=== PATIENT | female | born 1985 | race Hispanic/Latino ===

== ENCOUNTER 2017-07-05 01:30 | Emergency (ER) | payer MEDICAID, OTHER ==
--- NOTE | 2017-07-05 01:49 | Emergency Department Report ---
History of Present Illness - General Chief Complaint: Overdose Stated Complaint: MEDICAL CONDITION Time Seen by Provider: 07/05/17 01:39 Source: patient, police, EMS Mode of arrival: Stretcher Limitations: Altered Mental Status - History of Present Illness Initial Comments: [place] On arrival she was agitated and confused and having pseudoseizures according to EMS. She is cussing and confused. She does answer questions but is very vulgar with staff. Complaint: other (unknown) -: Sudden - Related Data Allergies Allergy/AdvReac Type Severity Reaction Status Date / Time Unable to Assess Allergy Unverified 07/05/17 01:37 ED Review of Systems ROS: Stated complaint: MEDICAL CONDITION Other details as noted in HPI Comment: Unobtainable due to pts medical conditions ED Past Medical Hx - Past Medical History Previous Medical History?: Yes Hx Heart Attack/AMI: Yes Hx Seizures: Yes Hx Asthma: Yes - Surgical History Past Surgical History?: No - Social History Smoking Status: Current Every Day Smoker Substance Use Type: Alcohol, Heroin, Methamphetamines ED Physical Exam - General Limitations: Altered Mental Status General appearance: appears intoxicated, other (disheveled) - Head Head exam: Present: atraumatic, normocephalic - Eye Eye exam: Present: normal appearance - Neck Neck exam: Absent: lymphadenopathy, thyromegaly - Respiratory Respiratory exam: Present: normal lung sounds bilaterally, respiratory distress - Cardiovascular Cardiovascular Exam: Present: normal rhythm, tachycardia - GI/Abdominal GI/Abdominal exam: Absent: soft, distended - Neurological Exam Neurological exam: Present: alert - Psychiatric Psychiatric exam: Present: agitated - Skin Skin exam: Present: warm, dry, intact ED Medical Decision Making - Medical Decision Making Patient extremely agitated. He was given Haldol Versed and Benadryl by EMS. Plan to give her a dose of Geodon if she remains aggressive with staff here in the emergency department. Plan to check labs and will observe in the emergency department. Likely 2012 to hold the patient for safety. Portions of this chart were dictated with dictation software. There may be dictation errors contained within this note. Critical care attestation.: If time is entered above; I have spent that time in minutes in the direct care of this critically ill patient, excluding procedure time. ED Disposition Condition: Stable
[2017-07-05 01:51] LABS: Urine Drugs of Abuse Note Disclamer
[2017-07-05 02:15] LABS: Bilirubin,Urine NEG (Negative); Blood,Urine NEG (Negative); Ketones,Urine NEG (Negative); Leukocyte Esterase,Urine NEG (Negative); Nitrite,Urine NEG (Negative); Protein,Urine <15 mg/dL mg/dL (Negative); Urobilinogen,Urine < 2.0 mg/dL (<2.0)
[2017-07-05 02:26] LABS: RBC,Urine < 1.0 /HPF (0.0-6.0); WBC,Urine < 1.0 /HPF (0.0-6.0)
[2017-07-05 02:30] LABS: Basophils % (Auto) 0.8 % (0.0-1.8); Eosinophils % (Auto) 2.1 % (0.0-4.3); Hematocrit 38.8 % (30.3-42.9); Hemoglobin 13.5 gm/dl (10.1-14.3); Mean Corpuscular HGB Conc 35 % (30-34); Mean Corpuscular Hemoglobin 34 pg (28-32); Mean Corpuscular Volume 98 fl (79-97); Platelet Count 70 K/mm3 (140-440); Red Blood Count 3.94 M/mm3 (3.65-5.03); Red Cell Distribution Width 13.1 % (13.2-15.2); White Blood Count 8.7 K/mm3 (4.5-11.0)
[2017-07-05 02:31] LABS: INR 0.86 (0.87-1.13)
[2017-07-05 02:33] LABS: Alanine Aminotransferase 17 units/L (7-56); Albumin 3.8 g/dL (3.9-5); Albumin/Globulin Ratio 1.5 %; Alkaline Phosphatase 93 units/L (35-129); Anion Gap 24 mmol/L; BUN/Creatinine Ratio 11; Bilirubin,Total < 0.20 mg/dL (0.1-1.2); Blood Urea Nitrogen 8 mg/dL (7-17); Calcium 8.6 mg/dL (8.4-10.2); Carbon Dioxide 17 mmol/L (22-30); Chloride 106.2 mmol/L (98-107); Creatine Kinase 330 units/L (30-135); Glucose 93 mg/dL (65-100); Potassium 3.7 mmol/L (3.6-5.0); Sodium 143 mmol/L (137-145); Total Protein 6.4 g/dL (6.3-8.2)
[2017-07-05] MEDS ORDERED: NACL 0.9% 1000 ML 1,000 ML IV ONE (03:01)
[2017-07-05 12:06] VITALS: BP 104/65
--- NOTE | 2017-07-05 12:06 | Event Note ---
Date: 07/05/17 Patient is alert and oriented 4 patient able to tolerate by mouth challenge and able to ambulate. I will send patient with police custody.
== END 2017-07-05 12:06 | disposition home or self-care (01) ==
LOC: ED 01:30 → EEVIPCON 01:30 → ED 12:06
DX: R45.1 Restlessness and agitation (principal); R41.0 Disorientation, unspecified; F17.210 Nicotine dependence, cigarettes, uncomplicated; F15.10 Other stimulant abuse, uncomplicated; F11.10 Opioid abuse, uncomplicated; I25.2 Old myocardial infarction
CPT/HCPCS: 36415; 80053; 80307; 81001; 81025; 82140; 82550; 85025; 85610; 96360; 99285; G0480; J7030; 80320

== ENCOUNTER 2018-03-19 22:08 | Emergency (ER) | payer MEDICAID, OTHER ==
[2018-03-19 22:15] VITALS: BP 130/83
[2018-03-19] MEDS ORDERED: TETRACAINE 0.5% ONE (22:51)
[2018-03-19] MEDS ORDERED: FUL-GLO OP ONE (22:56)
[2018-03-19] MEDS ORDERED: TETRACAINE 0.5% OU ONE (22:56)
[2018-03-19] MEDS ORDERED: BSS OU ONE (22:56)
[2018-03-19] MEDS ORDERED: NORCO 7.5/325 ONE (23:28)
--- NOTE | 2018-03-19 23:42 | Emergency Department Report ---
<TINY GUZMAN - Last Filed: 03/19/18 23:38> ED Eye Problem HPI - General Chief complaint: Eye Problems Stated complaint: RIGHT EYE PAIN Time Seen by Provider: 03/19/18 23:25 Source: patient Mode of arrival: Ambulatory Limitations: No Limitations - History of Present Illness Initial comments: 32-year-old female comes in after getting poked in the right eye while playing with a friend. Patient is unable to do a visual acuity. Past medical history legally blind in the left eye from . She reports she has an allergy to tramadol but able to have [place]. She reports her pain is a 10 out of 10 MD chief complaint: eye pain, eye redness, vision change -: This evening Location: right eye Place: home If Injury: direct trauma Eye Symptoms: pain, blurry vision Severity: severe Severity scale (0 -10): 10 If Pain, Quality: sharp, aching, throbbing Consistency: constant Associated Symptoms: none Treatments Prior to Arrival: none - Related Data Previous Rx's Medication Instructions Recorded Last Taken Type Acetaminophen/Codeine [Tylenol #3] 1 tab PO Q6H PRN #14 tab 01/22/15 Unknown Rx Ibuprofen [Motrin 800 MG tab] 800 mg PO Q8H PRN #14 tablet 01/22/15 Unknown Rx HYDROcodone/ACETAMINOPHEN [[place] 1 each PO Q6H PRN #12 tablet 01/24/15 Unknown Rx 7.5-325 mg TAB] Sulfamethoxazole/Trimethoprim 1 each PO BID #20 tablet 07/31/15 Unknown Rx [Bactrim DS TAB] Ciprofloxacin 0.3% (Nf) 2 drops OD QID 5 Days #1 bottle 03/19/18 Unknown Rx [Ciprofloxacin OPTH] HYDROcodone/APAP 5-325 [[place] 1 each PO Q6HR PRN #20 tablet 03/19/18 Unknown Rx 5-325 mg TAB] Ibuprofen [Motrin 600 MG tab] 600 mg PO Q8H PRN #30 tablet 03/19/18 Unknown Rx Allergies Allergy/AdvReac Type Severity Reaction Status Date / Time lamotrigine [From Lamictal] Allergy Hives Verified 03/19/18 22:50 tramadol AdvReac Vomiting Verified 01/24/15 14:32 ED Review of Systems ROS: Stated complaint: RIGHT EYE PAIN Other details as noted in HPI Comment: All other systems reviewed and negative Eyes: eye pain, vision change ED Past Medical Hx - Past Medical History Hx Heart Attack/AMI: Yes Hx Seizures: Yes Hx Asthma: Yes Additional medical history: Left eye Blurreed vision - Social History Smoking Status: Current Every Day Smoker Substance Use Type: None - Medications Home Medications: Home Medications Medication Instructions Recorded Confirmed Last Taken Type Acetaminophen/Codeine [Tylenol #3] 1 tab PO Q6H PRN #14 tab 01/22/15 Unknown Rx Ibuprofen [Motrin 800 MG tab] 800 mg PO Q8H PRN #14 tablet 01/22/15 Unknown Rx HYDROcodone/ACETAMINOPHEN [[place] 1 each PO Q6H PRN #12 tablet 01/24/15 Unknown Rx 7.5-325 mg TAB] Sulfamethoxazole/Trimethoprim 1 each PO BID #20 tablet 07/31/15 Unknown Rx [Bactrim DS TAB] Ciprofloxacin 0.3% (Nf) 2 drops OD QID 5 Days #1 bottle 03/19/18 Unknown Rx [Ciprofloxacin OPTH] HYDROcodone/APAP 5-325 [[place] 1 each PO Q6HR PRN #20 tablet 03/19/18 Unknown Rx 5-325 mg TAB] Ibuprofen [Motrin 600 MG tab] 600 mg PO Q8H PRN #30 tablet 03/19/18 Unknown Rx ED Physical Exam - General Limitations: No Limitations - Expanded Eye Exam Expanded Eyelids: Normal Inspection: Right Pupils: Regular, Round: Right Sclera/Conjunctival: Injection: Right IOP measured with: other (patient has fluorescein uptake to the right upper area between 10 and 1, and a scratch to the lower right cornea.) - ENT ENT exam: Present: mucous membranes moist ED Course Vital Signs 03/19/18 03/19/18 03/19/18 22:09 23:48 23:50 Temperature 98.3 F Pulse Rate 114 H Respiratory 22 18 18 Rate Blood Pressure 130/83 O2 Sat by Pulse 100 Oximetry ED Medical Decision Making - Medical Decision Making Patient has been evaluated by this provider in fast track. Fluorescein exam shows patient has a cornea abrasion. [place] 7.5 mg given for pain management. We'll place patient on antibiotics for her eye. Critical care attestation.: If time is entered above; I have spent that time in minutes in the direct care of this critically ill patient, excluding procedure time. ED Disposition Disposition: DC-01 TO HOME OR SELFCARE Is pt being admited?: No Does the pt Need Aspirin: No Condition: Stable Instructions: Ciprofloxacin (Into the eye) Additional Instructions: Please take pain medication as prescribed. Please do not operate heavy machinery while taking [place]. Please see his eyedrops as prescribed 2 drops every 6 hours for the next 5 days. It is very very important for you to follow up with an statistical programmer analyst that is in the community support specialist to be reevaluated for eye. Prescriptions: Ciprofloxacin 0.3% (Nf) [Ciprofloxacin OPTH] 2 drops OD QID 5 Days #1 bottle HYDROcodone/APAP 5-325 [[place] 5-325 mg TAB] 1 each PO Q6HR PRN #20 tablet PRN Reason: Pain Ibuprofen [Motrin 600 MG tab] 600 mg PO Q8H PRN #30 tablet PRN Reason: Pain Referrals: PRIMARY CAREMD [Primary Care Provider] - 3-5 Days SERVANDO GASPAR MD [Staff Physician] - 3-5 Days [facility] [Provider Group] - 3-5 Days [facility] [Provider Group] - 3-5 Days ONEL SANDERS MD [Staff Physician] - 3-5 Days ALANNA ABBASI MD [Staff Physician] - 3-5 Days Forms: Accompanied Note, Work/School Release Form(ED) <ESTIVEN ARMENDARIZ. - Last Filed: 03/20/18 11:39> ED Medical Decision Making - Medical Decision Making I was available for consultations at all times during the patient stay. I did not personally see and was not involved in the care of the patient. Miguel Armendariz MD
[2018-03-19] MEDS ORDERED: MOTRIN PO ONE ×2 (23:44→23:46)
[2018-03-19] MEDS ORDERED: NORCO 7.5/325 PO ONE (23:49)
== END 2018-03-20 | disposition home or self-care (01) ==
LOC: ED 22:08
DX: S05.01XA Injury of conjunctiva and corneal abrasion without foreign body, right eye, initial encounter (principal); I25.2 Old myocardial infarction; J45.909 Unspecified asthma, uncomplicated; F17.200 Nicotine dependence, unspecified, uncomplicated; Z88.8 Allergy status to other drugs, medicaments and biological substances; X58.XXXA Exposure to other specified factors, initial encounter; Y93.89 Activity, other specified; Y99.8 Other external cause status; Y92.098 Other place in other non-institutional residence as the place of occurrence of the external cause
CPT/HCPCS: 99283

== ENCOUNTER 2020-02-20 12:31 | Emergency (ER) | payer MEDICAID ==
[2020-02-20 12:44] VITALS: BP 118/72
--- NOTE | 2020-02-20 13:27 | Emergency Department Report ---
- General Chief complaint: Skin/Abscess/Foreign Body Stated complaint: INFECTED TATTOO Time Seen by Provider: 02/20/20 13:20 Source: patient Mode of arrival: Ambulatory Limitations: No Limitations - History of Present Illness Initial comments: pt is a 34 yo female who present to the ED with c/o a "infection to her tattoo." she states that she received a tattto two days ago. she states that she noticed erythema, increased warmth, and small amount of drainage. she states that she did see them use a new tattoo needle from a pack. she denies any fever, no n/v/d. pmhx asthma. allergy: tramadol, lamictal. states she goes to a pain clinic. - Related Data Previous Rx's Medication Instructions Recorded Last Taken Type Acetaminophen/Codeine [Tylenol #3] 1 tab PO Q6H PRN #14 tab 01/22/15 Unknown Rx Ibuprofen [Motrin 800 MG tab] 800 mg PO Q8H PRN #14 tablet 01/22/15 Unknown Rx HYDROcodone/ACETAMINOPHEN [[place] 1 each PO Q6H PRN #12 tablet 01/24/15 Unknown Rx 7.5-325 mg TAB] Sulfamethoxazole/Trimethoprim 1 each PO BID #20 tablet 07/31/15 Unknown Rx [Bactrim DS TAB] Ciprofloxacin 0.3% (Nf) 2 drops OD QID 5 Days #1 bottle 03/19/18 Unknown Rx [Ciprofloxacin OPTH] HYDROcodone/APAP 5-325 [[place] 1 each PO Q6HR PRN #20 tablet 03/19/18 Unknown Rx 5-325 mg TAB] Ibuprofen [Motrin 600 MG tab] 600 mg PO Q8H PRN #30 tablet 03/19/18 Unknown Rx Mupirocin [Bactroban 2% OINT] 1 applic TP TID #1 tube 02/20/20 Unknown Rx Sulfamethoxazole/Trimethoprim 2 each PO BID 10 Days #40 tablet 02/20/20 Unknown Rx [Bactrim DS TAB] Allergies Allergy/AdvReac Type Severity Reaction Status Date / Time lamotrigine [From Lamictal] Allergy Hives Verified 03/19/18 22:50 tramadol AdvReac Vomiting Verified 01/24/15 14:32 Abscess Boil HPI - HPI Chief Complaint: Skin/Abscess/Foreign Body Stated Complaint: INFECTED TATTOO Time Seen by Provider: 02/20/20 13:20 Home Medications: Previous Rx's Medication Instructions Recorded Last Taken Type Acetaminophen/Codeine [Tylenol #3] 1 tab PO Q6H PRN #14 tab 01/22/15 Unknown Rx Ibuprofen [Motrin 800 MG tab] 800 mg PO Q8H PRN #14 tablet 01/22/15 Unknown Rx HYDROcodone/ACETAMINOPHEN [[place] 1 each PO Q6H PRN #12 tablet 01/24/15 Unknown Rx 7.5-325 mg TAB] Sulfamethoxazole/Trimethoprim 1 each PO BID #20 tablet 07/31/15 Unknown Rx [Bactrim DS TAB] Ciprofloxacin 0.3% (Nf) 2 drops OD QID 5 Days #1 bottle 03/19/18 Unknown Rx [Ciprofloxacin OPTH] HYDROcodone/APAP 5-325 [[place] 1 each PO Q6HR PRN #20 tablet 03/19/18 Unknown Rx 5-325 mg TAB] Ibuprofen [Motrin 600 MG tab] 600 mg PO Q8H PRN #30 tablet 03/19/18 Unknown Rx Mupirocin [Bactroban 2% OINT] 1 applic TP TID #1 tube 02/20/20 Unknown Rx Sulfamethoxazole/Trimethoprim 2 each PO BID 10 Days #40 tablet 02/20/20 Unknown Rx [Bactrim DS TAB] Allergies/Adverse Reactions: Allergies Allergy/AdvReac Type Severity Reaction Status Date / Time lamotrigine [From Lamictal] Allergy Hives Verified 03/19/18 22:50 tramadol AdvReac Vomiting Verified 01/24/15 14:32 ED Review of Systems ROS: Stated complaint: INFECTED TATTOO Other details as noted in HPI Comment: All other systems reviewed and negative ED Past Medical Hx - Past Medical History Previous Medical History?: Yes Hx Heart Attack/AMI: Yes Hx Seizures: Yes (from coming off xanax not on meds) Hx Psychiatric Treatment: Yes (bipolar) Hx Asthma: Yes Additional medical history: Left eye Blurreed vision - Surgical History Past Surgical History?: Yes Additional Surgical History: bladder - Social History Smoking Status: Current Every Day Smoker Substance Use Type: None - Medications Home Medications: Home Medications Medication Instructions Recorded Confirmed Last Taken Type Acetaminophen/Codeine [Tylenol #3] 1 tab PO Q6H PRN #14 tab 01/22/15 Unknown Rx Ibuprofen [Motrin 800 MG tab] 800 mg PO Q8H PRN #14 tablet 01/22/15 Unknown Rx HYDROcodone/ACETAMINOPHEN [[place] 1 each PO Q6H PRN #12 tablet 01/24/15 Unknown Rx 7.5-325 mg TAB] Sulfamethoxazole/Trimethoprim 1 each PO BID #20 tablet 07/31/15 Unknown Rx [Bactrim DS TAB] Ciprofloxacin 0.3% (Nf) 2 drops OD QID 5 Days #1 bottle 03/19/18 Unknown Rx [Ciprofloxacin OPTH] HYDROcodone/APAP 5-325 [[place] 1 each PO Q6HR PRN #20 tablet 03/19/18 Unknown Rx 5-325 mg TAB] Ibuprofen [Motrin 600 MG tab] 600 mg PO Q8H PRN #30 tablet 03/19/18 Unknown Rx Mupirocin [Bactroban 2% OINT] 1 applic TP TID #1 tube 02/20/20 Unknown Rx Sulfamethoxazole/Trimethoprim 2 each PO BID 10 Days #40 tablet 02/20/20 Unknown Rx [Bactrim DS TAB] ED Physical Exam - General Limitations: No Limitations General appearance: alert, in no apparent distress - Head Head exam: Present: atraumatic, normocephalic - Eye Eye exam: Present: normal appearance - ENT ENT exam: Present: mucous membranes moist - Neurological Exam Neurological exam: Present: alert, oriented X3 - Psychiatric Psychiatric exam: Present: normal affect, normal mood - Skin Skin exam: Present: warm, other (tattoo present to the right lateral thigh, there is a 2 cm surrounding cirucular area of erythema present surrounding the tattoo, there is honey colored crusting present overlying the tatto, there is increased warmth, no fluctuance, no active drainage) ED Course Vital Signs 02/20/20 12:40 Temperature 97.7 F Pulse Rate 81 Respiratory 18 Rate Blood Pressure 118/72 O2 Sat by Pulse 100 Oximetry ED Medical Decision Making - Medical Decision Making pt is a 34 yo female who present to the ED with c/o a "infection to her tattoo." she states that she received a tattto two days ago. she states that she noticed erythema, increased warmth, and small amount of drainage. she states that she did see them use a new tattoo needle from a pack. she denies any fever, no n/v/d. pmhx asthma. allergy: tramadol, lamictal. states she goes to a pain clinic. Vitals are normal. On exam:tattoo present to the right lateral thigh, there is a 2 cm surrounding cirucular area of erythema present surrounding the tattoo, there is honey colored crusting present overlying the tatto, there is increased warmth, no fluctuance, no active drainage. Examination consistent with cellulitis, no signs of abscess. Patient given prescription for Bactrim and mupirocin. Discussed in detail with patient strict return precautions. Discussed with patient that she needed to have it reexamined in 3 days. advised pt please use medication as prescribed. please follow up with your primary care doctor in the next 3 days for reexamination. return to the emergency room for any new or worsening symptoms including but not limited to worsening redness, worsening swelling, worsening drainage, fever, vomiting, etc. Critical care attestation.: If time is entered above; I have spent that time in minutes in the direct care of this critically ill patient, excluding procedure time. ED Disposition Clinical Impression: Cellulitis Qualifiers: Site of cellulitis: extremity Site of cellulitis of extremity: lower extremity Laterality: right Qualified Code(s): L03.115 - Cellulitis of right lower limb Disposition: DC-01 TO HOME OR SELFCARE Is pt being admited?: No Does the pt Need Aspirin: No Condition: Stable Instructions: Cellulitis (ED) Additional Instructions: please use medication as prescribed. please follow up with your primary care doctor in the next 3 days for reexamination. return to the emergency room for any new or worsening symptoms including but not limited to worsening redness, worsening swelling, worsening drainage, fever, vomiting, etc. Prescriptions: Sulfamethoxazole/Trimethoprim [Bactrim DS TAB] 2 each PO BID 10 Days #40 tablet Mupirocin [Bactroban 2% OINT] 1 applic TP TID #1 tube Referrals: your, primary care doctor [Other] - 2-3 Days Time of Disposition: 13:28 Print Language: SURINAMESE
== END 2020-02-20 13:46 | disposition home or self-care (01) ==
LOC: ED 12:31
DX: L03.115 Cellulitis of right lower limb (principal); I10 Essential (primary) hypertension; R56.9 Unspecified convulsions; F31.9 Bipolar disorder, unspecified; J45.909 Unspecified asthma, uncomplicated; F17.200 Nicotine dependence, unspecified, uncomplicated; Z98.890 Other specified postprocedural states; Z79.1 Long term (current) use of non-steroidal anti-inflammatories (NSAID); Z79.2 Long term (current) use of antibiotics; Z79.899 Other long term (current) drug therapy; Z88.8 Allergy status to other drugs, medicaments and biological substances
CPT/HCPCS: 99282

== ENCOUNTER 2020-02-23 11:01 | Outpatient (CLI) | payer MEDICAID ==
--- NOTE | 2020-02-23 13:18 | XRay Report ---
SACRUM AND COCCYX 3 VIEWS INDICATION / CLINICAL INFORMATION: SACRAL AND COCCYX PAIN. COMPARISON: None available. FINDINGS: No significant skeletal abnormality Signer Name: Jose Maxwell MD FACAsiya Signed: 02/23/2020 1:13 PM Workstation Name: [id number]
--- NOTE | 2020-02-23 13:20 | XRay Report ---
BOTH HIPS 3 VIEWS INDICATION / CLINICAL INFORMATION: CHRONIC PAIN SYNDROME. COMPARISON: None available. FINDINGS: Pelvis and both hips appear unremarkable. No significant degenerative change. No bone lesions or acut e abnormalities. Signer Name: George Garcia MD Signed: 02/23/2020 1:16 PM Workstation Name: [id number]
== END 2020-02-23 11:02 | disposition home or self-care (01) ==
LOC: XRAY 11:01
PROVIDERS: ATTEND Anesthesiology
DX: G89.4 Chronic pain syndrome (principal); M53.3 Sacrococcygeal disorders, not elsewhere classified; M46.1 Sacroiliitis, not elsewhere classified; M54.5 Low back pain
CPT/HCPCS: 72220; 73521

== ENCOUNTER 2021-04-09 20:14 | Emergency (ER) | payer MEDICAID ==
[2021-04-09 20:40] VITALS: BP 115/85
== END 2021-04-09 21:45 | disposition left against medical advice (07) ==
LOC: ED 20:14
DX: R42 Dizziness and giddiness (principal); H92.02 Otalgia, left ear; Z53.21 Procedure and treatment not carried out due to patient leaving prior to being seen by health care provider

== ENCOUNTER 2021-06-26 13:57 | Emergency (ER) | payer MEDICAID ==
[2021-06-26] MEDS ORDERED: HALOPERIDOL LACTATE 5 MG/1 ML INJ IV ONE (14:07)
--- NOTE | 2021-06-26 14:07 | Emergency Department Report ---
ED General Adult HPI - General Chief complaint: Dizziness Stated complaint: FEELING FAINT Time Seen by Provider: 06/26/21 14:05 Source: patient Mode of arrival: Wheelchair Limitations: No Limitations - History of Present Illness Initial comments: Patient presents because she is agitated and cannot rest. She states that she has been doing meth. She has inserted methamphetamine into her rectum. She was brought in for further evaluation because of the agitation. She states she just does not feel normally. She has used approximately 3 g today. That is 3 times her normal daily dose. She is not suicidal homicidal. She is not hearing voices. - Related Data Previous Rx's Medication Instructions Recorded Last Taken Type Acetaminophen/Codeine [Tylenol #3] 1 tab PO Q6H PRN #14 tab 01/22/15 Unknown Rx Ibuprofen [Motrin 800 MG tab] 800 mg PO Q8H PRN #14 tablet 01/22/15 Unknown Rx HYDROcodone/ACETAMINOPHEN [[place] 1 each PO Q6H PRN #12 tablet 01/24/15 Unknown Rx 7.5-325 mg TAB] Sulfamethoxazole/Trimethoprim 1 each PO BID #20 tablet 07/31/15 Unknown Rx [Bactrim DS TAB] Ciprofloxacin 0.3% (Nf) 2 drops OD QID 5 Days #1 bottle 03/19/18 Unknown Rx [Ciprofloxacin OPTH] HYDROcodone/APAP 5-325 [[place] 1 each PO Q6HR PRN #20 tablet 03/19/18 Unknown Rx 5-325 mg TAB] Ibuprofen [Motrin 600 MG tab] 600 mg PO Q8H PRN #30 tablet 03/19/18 Unknown Rx Mupirocin [Bactroban 2% OINT] 1 applic TP TID #1 tube 02/20/20 Unknown Rx Sulfamethoxazole/Trimethoprim 2 each PO BID 10 Days #40 tablet 02/20/20 Unknown Rx [Bactrim DS TAB] Allergies Allergy/AdvReac Type Severity Reaction Status Date / Time lamotrigine [From Lamictal] Allergy Hives Verified 03/19/18 22:50 tramadol AdvReac Vomiting Verified 01/24/15 14:32 ED Review of Systems ROS: Stated complaint: FEELING FAINT Other details as noted in HPI Comment: All other systems reviewed and negative Constitutional: denies: fever Eyes: denies: eye pain ENT: denies: throat pain Respiratory: denies: cough Cardiovascular: denies: chest pain Endocrine: denies: unexplained weight loss Gastrointestinal: denies: vomiting Genitourinary: denies: dysuria Musculoskeletal: denies: back pain Skin: denies: rash Neurological: denies: headache Hematological/Lymphatic: denies: easy bruising ED Past Medical Hx - Past Medical History Previous Medical History?: Yes Hx Heart Attack/AMI: Yes Hx Seizures: Yes (from coming off xanax not on meds) Hx Psychiatric Treatment: Yes (bipolar) Hx Asthma: Yes Additional medical history: Left eye Blurreed vision - Surgical History Past Surgical History?: Yes Additional Surgical History: bladder - Family History Family history: no significant - Social History Smoking Status: Current Every Day Smoker Substance Use Type: None - Medications Home Medications: Home Medications Medication Instructions Recorded Confirmed Last Taken Type Acetaminophen/Codeine [Tylenol #3] 1 tab PO Q6H PRN #14 tab 01/22/15 Unknown Rx Ibuprofen [Motrin 800 MG tab] 800 mg PO Q8H PRN #14 tablet 01/22/15 Unknown Rx HYDROcodone/ACETAMINOPHEN [[place] 1 each PO Q6H PRN #12 tablet 01/24/15 Unknown Rx 7.5-325 mg TAB] Sulfamethoxazole/Trimethoprim 1 each PO BID #20 tablet 07/31/15 Unknown Rx [Bactrim DS TAB] Ciprofloxacin 0.3% (Nf) 2 drops OD QID 5 Days #1 bottle 03/19/18 Unknown Rx [Ciprofloxacin OPTH] HYDROcodone/APAP 5-325 [[place] 1 each PO Q6HR PRN #20 tablet 03/19/18 Unknown Rx 5-325 mg TAB] Ibuprofen [Motrin 600 MG tab] 600 mg PO Q8H PRN #30 tablet 03/19/18 Unknown Rx Mupirocin [Bactroban 2% OINT] 1 applic TP TID #1 tube 02/20/20 Unknown Rx Sulfamethoxazole/Trimethoprim 2 each PO BID 10 Days #40 tablet 02/20/20 Unknown Rx [Bactrim DS TAB] ED Physical Exam - General Limitations: No Limitations, Other ( Pulse ox was noted and normal. She is not hypoxic.) General appearance: alert, in no apparent distress - Head Head exam: Present: atraumatic, normocephalic, normal inspection - Eye Eye exam: Present: normal appearance, EOMI. Absent: scleral icterus - ENT ENT exam: Present: normal exam, normal orophraynx, mucous membranes moist - Neck Neck exam: Present: normal inspection. Absent: meningismus - Respiratory Respiratory exam: Present: normal lung sounds bilaterally. Absent: respiratory distress - Cardiovascular Cardiovascular Exam: Present: regular rate, normal rhythm - GI/Abdominal GI/Abdominal exam: Present: soft. Absent: tenderness - Extremities Exam Extremities exam: Present: normal capillary refill - Back Exam Back exam: Absent: CVA tenderness (R), CVA tenderness (L) - Neurological Exam Neurological exam: Present: alert, oriented X3, CN II-XII intact, normal gait. Absent: motor sensory deficit - Psychiatric Psychiatric exam: Present: anxious - Skin Skin exam: Present: warm, dry ED Course Vital Signs 06/26/21 06/26/21 06/26/21 14:07 14:51 15:40 Temperature 98.9 F 98.9 F 98.4 F Pulse Rate 93 H 91 H Respiratory 20 18 16 Rate Blood Pressure 128/88 98/59 98/63 O2 Sat by Pulse 97 97 Oximetry 06/26/21 06/26/21 15:42 15:46 Temperature Pulse Rate 59 L 73 Respiratory 41 H 22 Rate Blood Pressure 97/63 O2 Sat by Pulse 100 99 Oximetry - Reevaluation(s) Reevaluation #1: 06/26/21 14:07 Haldol was ordered. Reevaluation #2: 06/26/21 16:05 After medication, patient was much more relaxed. She was observed for stability and then subsequently discharged. ED Medical Decision Making - Medical Decision Making Patient presented because she was not feeling well after using methamphetamine rectally. She is not suicidal homicidal. She was not delusional. There is no evidence of an acute psychosis induced by methamphetamine. Patient was treated symptomatically and subsequently feeling better. Patient was subsequently disch arged. We have discussed substance abuse and follow-up. Critical care attestation.: If time is entered above; I have spent that time in minutes in the direct care of this critically ill patient, excluding procedure time. ED Disposition Clinical Impression: Methamphetamine abuse Disposition: HOME / SELF CARE / HOMELESS Is pt being admited?: No Condition: Stable Instructions: Methamphetamines Use Disorder Additional Instructions: Drink plenty of water. Avoid stimulants and other drugs. Seek medical help to stop using methamphetamine. Avoid it in your social situations. Return for problems.
[2021-06-26 18:05] VITALS: BP 103/67
== END 2021-06-26 18:06 | disposition home or self-care (01) ==
LOC: ED 13:57
DX: F15.10 Other stimulant abuse, uncomplicated (principal)
CPT/HCPCS: 96374; 99283; J1630

== ENCOUNTER 2022-01-29 07:14 | Emergency (ER) | payer MEDICAID ==
[2022-01-29 11:00] VITALS: BP 137/65
--- NOTE | 2022-01-29 11:33 | Event Note ---
Date: 01/29/22 Patient eloped from the emergency room before I could personally evaluate her. Nursing team informs me that the patient is awake, alert, oriented, sober of sound mind, ambulatory with a steady gait, and not homicidal or suicidal. EMS documentation not available at time of chart dictation Vital Signs 01/29/22 01/29/22 07:14 11:00 Temperature 98.3 F Pulse Rate 107 H 87 Respiratory 16 17 Rate Blood Pressure 92/56 137/65 [Left] O2 Sat by Pulse 100 99 Oximetry
[2022-01-29 11:34] LABS: Eosinophils # (Auto) 0.2 K/mm3 (0.0-0.4); Eosinophils % (Auto) 2.1 % (0.0-4.3); Hematocrit 40.4 % (30.3-42.9); Hemoglobin 13.8 gm/dl (10.1-14.3); Lymphocytes # (Auto) 2.3 K/mm3 (1.2-5.4); Lymphocytes % (Auto) 22.2 % (13.4-35.0); Mean Corpuscular HGB Conc 34 % (30-34); Mean Corpuscular Volume 93 fl (79-97); Monocytes # (Auto) 0.4 K/mm3 (0.0-0.8); Monocytes % (Auto) 3.7 % (0.0-7.3); Platelet Count 341 K/mm3 (140-440); Red Blood Count 4.33 M/mm3 (3.65-5.03); Red Cell Distribution Width 12.2 % (13.2-15.2)
[2022-01-29 11:44] LABS: Blood Urea Nitrogen 13 mg/dL (7-17); Calcium 9.4 mg/dL (8.4-10.2); Hemolysis Index 9
[2022-01-29 11:50] LABS: BUN/Creatinine Ratio 22
== END 2022-01-29 12:15 | disposition left against medical advice (07) ==
LOC: ED 07:14
DX: R41.82 Altered mental status, unspecified (principal); Z53.21 Procedure and treatment not carried out due to patient leaving prior to being seen by health care provider
CPT/HCPCS: 36415; 80048; 80320; 85025; G0480